=== PATIENT | male | born 1955 | race Caucasian/White ===

== ENCOUNTER 2019-12-15 12:49 | Outpatient (RCR) | payer OTHER ==
[2020-01-26] MEDS ORDERED: SIMV20TA26 PO (14:20)
[2020-02-02] MEDS ORDERED: ACET1TAB43 PO (11:03)
[2020-02-02] MEDS ORDERED: CIPR-226 PO (11:03)
== END 2020-02-15 | disposition home or self-care (01) ==
LOC: ONC 12:49
PROVIDERS: ATTEND Radiology Radiation Oncology
DX: C61 Malignant neoplasm of prostate (principal); Z87.01 Personal history of pneumonia (recurrent)
CPT/HCPCS: 76873; 99204

== ENCOUNTER 2020-01-31 05:37 | Outpatient (RCR) | payer OTHER ==
[~2020-01-31] VITALS: Ht 177.8 cm; Wt 81.8 kg
[~2020-01-31 05:37] MED LIST: SIMV20TA26 PO
== END 2020-01-31 14:44 | disposition home or self-care (01) ==
LOC: PREOP 05:37
PROVIDERS: ATTEND Radiology Radiation Oncology
DX: Z01.812 Encounter for preprocedural laboratory examination (principal); Z20.828 Contact with and (suspected) exposure to other viral communicable diseases
CPT/HCPCS: 87635

== ENCOUNTER 2020-02-02 09:51 | Day surgery (SDC) | payer OTHER ==
[~2020-02-02] VITALS: Ht 177.8 cm; Wt 81.8 kg
[2020-02-02] VITALS (9 sets, daily range): BP systolic 109–158; BP diastolic 73–99
[2020-02-02] MEDS ORDERED: LACTATED RINGERS 1,000 ML IV PRN (10:20)
[2020-02-02] MEDS ORDERED: LEVOFLOXACIN 500 MG/100 ML IV 100 ML IV ONE (10:30)
--- NOTE | 2020-02-02 10:45 | NUR ---
PATIENT WAS ABLE TO GO TO BATHROOM WITHOUT ENEMA AND WAS CLEAR PER ABRAHAM VIVEROS
--- NOTE | 2020-02-02 11:00 | Progress Note-Pre Operative ---
Pre-Operative Progress Note H&P Reviewed The H&P was reviewed, patient examined and no changes noted. Date Seen by Provider: Feb 02, 2020 Time Seen by Provider: 11:00 Date H&P Reviewed: Feb 02, 2020 Time H&P Reviewed: 11:00 Pre-Operative Diagnosis: Prostate cancer cT1c, PSA 5.56, Gleason7 (3+4) SUMAN NORTON MD Feb 02, 2020 11:00
[2020-02-02] MEDS ORDERED: ACET1TAB43 PO (11:03)
[2020-02-02] MEDS ORDERED: CIPR-226 PO (11:03)
--- NOTE | 2020-02-02 11:05 | Discharge Inst-Simple/Standard ---
Discharge Inst-Standard Reconcile Patient Problems Problems Reviewed?: Yes Discharge Medications New, Converted or Re-Newed RX: RX Given to Pt/Family Patient Instructions/Follow Up Plan of Care/Instructions/FU: 1)One month follow up with Dr. Hart 02/28/20 at 3:30 pm 2)One jack post implant scan at [facility] 03/02/20 at 11:00 am Activity as Tolerated: Yes Discharge Diet: No Restrictions Other Inst to Patient Please instruct patient on lucero catheter removal for Friday02/07/20 in the morning. SUMAN NORTON MD Feb 02, 2020 11:05
[2020-02-02] MEDS ORDERED: BACITRACIN OINTMENT 28 GM TUBE ONE (12:20)
[2020-02-02] MEDS ORDERED: LIDOCAINE PF 2% 5 ML (XYLOCAINE) VIAL ONE (12:21)
[2020-02-02] MEDS ORDERED: proPOfol 200 MG/20 ML (DIPRIVAN) VIAL IV ONE (12:21)
[2020-02-02] MEDS ORDERED: fentaNYL INJECTION 100 MCG/2 ML AMP ONE (12:21)
[2020-02-02] MEDS ORDERED: MIDAZOLAM 2 MG/2 ML (VERSED) VIAL ONE (12:22)
[2020-02-02] MEDS ORDERED: SEVOFLURANE (ULTANE) 15 ML INHAL SOLN ONE ×3 (12:24→13:07)
[2020-02-02] MEDS ORDERED: ONDANSETRON 4 MG/2 ML (SDV) Z0FRAN ONE (12:24)
[2020-02-02] MEDS ORDERED: ROCURONIUM 10 MG/ML 5 ML SYRINGE IV ONE (13:27)
[2020-02-02] MEDS ORDERED: PHENYLEPHRINE INJ 10 MG/ML (FOR DRIP KITS ONLY) ONE (13:28)
[2020-02-02] MEDS ORDERED: fentaNYL INJECTION 100 MCG/2 ML AMP IVP ONE (13:45)
[2020-02-02] MEDS ORDERED: MEPERIDINE (DEMEROL) INJ 50 MG/ML IVP ONE (13:45)
[2020-02-02] MEDS ORDERED: morphine INJ 10 MG/ML 1ML (SYR OR VIAL) IVP ONE (13:45)
[2020-02-02] MEDS ORDERED: ONDANSETRON 4 MG/2 ML (SDV) Z0FRAN IVP PRN (13:45)
--- NOTE | 2020-02-02 14:08 | Diagnostic Imaging Report ---
INDICATION: Fluoroscopy during prostate brachytherapy. Fluoroscopy was provided for Dr. Lorenzo during brachytherapy. 13 seconds of fluoroscopic time was utilized. A single image was obtained demonstrating multiple radiation seed implants within the prostate. IMPRESSION: Fluoroscopy for prostate brachytherapy. Dictated by: Dictated on workstation # [id number]
--- NOTE | 2020-02-02 14:51 | Anesthesia-General Post-Op ---
General Patient Condition Mental Status/LOC: Same as Preop Cardiovascular: Satisfactory Nausea/Vomiting: Absent Respiratory: Satisfactory Pain: Controlled Complications: Absent Post Op Complications Complications None Follow Up Care/Instructions Patient Instructions None needed. Anesthesia/Patient Condition Patient Condition Patient is doing well, no complaints, stable vital signs, no apparent adverse anesthesia problems. No complications reported per nursing. TRINITY KRISHNAN CRNA Feb 02, 2020 14:51
--- NOTE | 2020-02-02 15:11 | Progress Note-Post Operative ---
Post-Operative Progess Note Surgeon (s)/High [employer] Librarian (s) Surgeon SUMAN NORTON MD High School Librarian: Elina NEGRON MD Pre-Operative Diagnosis Prostate cancer cT1c, PSA 5.56, Gleason7 (3+4) Post-Operative Diagnosis Same as pre-op Procedure & Operative Findings Date of Procedure 02/02/20 Procedure Performed/Findings (1) 100% Cesium 131 permanent prostate seed implant (2) Injection of a biodegradable hydrogel prostate-rectal spacer utilizing the SpaceOAR system (3) Cystogram Prostate volume 36.2 cc Anesthesia Type General Estimated Blood Loss Estimated blood loss (mL): Minimal Specimens/Packing Specimens Removed N/A Packing: N/A SUMAN NORTON MD Feb 02, 2020 15:10
== END 2020-02-02 15:40 ==
LOC: SDC 09:51
PROVIDERS: ATTEND Radiology Radiation Oncology
DX: C61 Malignant neoplasm of prostate (principal); E78.00 Pure hypercholesterolemia, unspecified; M19.90 Unspecified osteoarthritis, unspecified site; Z91.09 Other allergy status, other than to drugs and biological substances; Z80.6 Family history of leukemia; Z80.7 Family history of other malignant neoplasms of lymphoid, hematopoietic and related tissues; Z82.3 Family history of stroke
CPT/HCPCS: 76000; 76965; 77290; 77318; 77332; 77370; 77470; 77778; 87081

== ENCOUNTER 2020-03-02 10:54 | Outpatient (RCR) | payer OTHER ==
[~2020-03-02 10:54] MED LIST changes: +ACET1TAB43 PO; +CIPR-226 PO
== END 2020-05-31 | disposition home or self-care (01) ==
LOC: ONC 10:54
PROVIDERS: ATTEND Radiology Radiation Oncology
DX: C61 Malignant neoplasm of prostate (principal); Z87.01 Personal history of pneumonia (recurrent)
CPT/HCPCS: 77290; 77295

== ENCOUNTER 2020-07-26 10:29 | Outpatient (RCR) | payer OTHER | END 2020-10-24 | disposition home or self-care (01) | LOC: ONC 10:29 | PROVIDERS: ATTEND Radiology Radiation Oncology | DX: C61 Malignant neoplasm of prostate (principal); Z87.01 Personal history of pneumonia (recurrent) | CPT/HCPCS: 84153; 99213 ==

== ENCOUNTER → 2022-12-04 | Outpatient (CLI) | payer MEDICARE, OTHER ==
[~2022-12-04] MED LIST changes: +ACET-11 PO; -ACET1TAB43 PO
--- NOTE | 2022-12-04 10:50 | Diagnostic Imaging Report ---
EXAMINATION: Left hip unilateral 2 or 3 views (w/pelvis when done) HISTORY: Hip pain COMPARISON: None available. FINDINGS: Alignment is normal. No fracture is seen. Joint spaces are normal. IMPRESSION: 1. Normal left hip. Dictated by: Dictated on workstation # [id number]
== END ==
LOC: ORTHO 09:04
PROVIDERS: ATTEND Orthopaedic Surgery
DX: M25.552 Pain in left hip (principal)
CPT/HCPCS: 73502; G0463; 99203